=== PATIENT | female | born 1980 | race Caucasian/White ===

== ENCOUNTER 2017-01-04 23:27 | Emergency (ER) | payer OTHER ==
[~2017-01-04 23:27] MED LIST: ALBUTEROL17 G1 IH; ALBUTEROL17 GM INH; BACTRIM DS TABL1 TA1 PO; DOXYCYCLINE HY100 M1 PO; ERYTHROMYCIN250 M1 PO; KEFLEX500 MG PO; KETOPROFEN PO; MOTRIN400 MG; MOTRIN400 MG PO; MOTRIN600 MG PO; NO MEDICATIONS; PREDNISONE PO; PRENATAL1 TA1 PO; ULTRAM PO; VICODIN PO; ZITHROMAX PO
== END 2017-01-04 23:28 | disposition left against medical advice (07) ==
LOC: CED 23:27
DX: Z53.21 Procedure and treatment not carried out due to patient leaving prior to being seen by health care provider (principal)

== ENCOUNTER 2017-02-08 07:00 | Emergency (ER) | payer OTHER ==
--- NOTE | ~2017-02-08 | CR72 ---
[facility] A Service of [facility] & [facility] RADIOLOGY TEXT RESULTS PATIENT: BISHNU OJEDA LOCATION: [facility] : 84 UNIT #: [id number] AGE: [address]: Will Willis MD SEX: F ORDER DR: [id number] [facility] [address] [place], [place] [address] [id number] E MR#: [id number] Acc #: [id number] NAME: BISHNU OJEDA : 1980 SEX: F STUDY DATE/TIME: 02/08/2017 7:05 UNIT: [facility] ROOM: STUDY DESCRIPTION: CR Chest Single View Portable Attending Physician: Will Willis M.D. Ordering Physician: [id number] Chris Willis Primary Care Physician: Primary Care Physician No MEDICAL IMAGING REPORT This report is preliminary unless electronic signature is present EXAM Portable chest one-view 02/08/2017 COMPARISON 11/12/2016. HISTORY Cough for 1 day, short of air. FINDINGS A single AP portable view of the chest shows both lungs to be clear. The heart is normal in size. The mediastinal contour is normal. No significant bone abnormalities are seen. IMPRESSION Normal portable chest. Dictated by... Faisal Davison M.D. THIS IS AN ELECTRONICALLY VERIFIED REPORT Faisal Davison M.D. at 02/10/2017 11:19 AM SAMMY/[email or web address] TD: 02/08/2017 09:57 JOB #: [id number] MEDICAL IMAGING REPORT Page 1 of 1 COPY
[2017-02-08 08:08] LABS: BASOPHIL% 0.4 % (0-2.5); EOSINOPHIL% 0.5 % (0.0-7.0); HEMATOCRIT 40.8 % (35.0-45.0); HEMOGLOBIN 13.2 gm/dL (12.0-16.0); LYMPHOCYTE# 1.8 X10e3 (1.0-3.5); LYMPHOCYTE% 30.2 % (17.0-45.0); MEAN CELL VOLUME 91.9 FL (83-96); MEAN CORPUSCULAR HEMOGLOBIN 29.8 PG (28-34); MEAN CORPUSCULAR HGB CONC 32.4 g/dL (30-36); MEAN PLATELET VOLUME 8.4 FL (6.5-11.5); MONOCYTE# 0.7 X10e3 (0-1.0); MONOCYTE% 12.2 % (3.0-12.0); NEUTROPHIL# 3.4 X10e3 (1.5-7.1); NEUTROPHIL% 56.7 % (40-75); PLATELET COUNT 271 X10e3 (140-420); RED BLOOD COUNT 4.45 X10e (3.90-5.30); RED CELL DISTRIBUTION WIDTH 15.3 % (11.0-15.5)
[2017-02-08 08:10] LABS: DIFF IND NO
[2017-02-08 09:00] LABS: ALBUMIN SERUM 3.9 g/dL (3.5-5.0); BILIRUBIN, DIRECT 0.1 mg/dL (0.0-0.2); BILIRUBIN,INDIRECT 0.5 mg/dL (0.0-0.9); BILIRUBIN,TOTAL 0.6 mg/dL (0.2-2.0); BUN/CREATININE RATIO 21.66; CREATININE SERUM 0.6 mg/dL (0.6-1.4); GLOM FILT RATE Estimated 118.9 mL/min (>60); POTASSIUM 3.2 mmol/L (3.5-5.1)
== END 2017-02-08 07:40 | disposition home or self-care (01) ==
LOC: CED 07:00
PROVIDERS: Emergency Medicine
DX: R06.02 Shortness of breath (principal); R05 Cough; F17.200 Nicotine dependence, unspecified, uncomplicated
CPT/HCPCS: 71010; 80048; 80076; 85025; 99283